=== PATIENT | female | born 1950 | race Asian ===

== ENCOUNTER 2021-07-11 03:15 | Inpatient (IN) | payer OTHER ==
[2021-07-11 03:36] VITALS: BMI 24.5
[2021-07-11] MEDS ORDERED: ACETAMINOPHEN 1000 MG/100 ML VIAL (NON FORMULARY) IVPB ONE (03:43)
[2021-07-11] MEDS ORDERED: SODIUM CHLORIDE 1,000 ML IV STA (03:43)
[2021-07-11] MEDS ORDERED: ONDANSETRON 4 MG/2 ML VIAL IVPUSH ONE (03:43)
[2021-07-11] MEDS ORDERED: ACETAMINOPHEN INJECTION 100 ML IVPB ONE (03:45)
[2021-07-11] MEDS ORDERED: ONDANSETRON 4 MG/2 ML VIAL ONE (03:46)
[2021-07-11 04:20] LABS: BASO % 0.5 % (0-2.0); HEMATOCRIT 42.5 % (32.4-45.2); HEMOGLOBIN 14.1 GM/dL (10.7-15.3); LYMPH % 10.3 % (8-40); MCH 26.3 pg (25.7-33.7); MCHC 33.1 g/dl (32.0-36.0); MEAN CELL VOLUME 79.4 fl (80-96); MEAN PLT VOLUME 8.8 fl (7.5-11.1); MONO % 4.4 % (3.8-10.2); NEUT % 82.8 % (42.8-82.8); PLATELET COUNT 269 10^3/uL (134-434); RBC 5.35 M/mm3 (3.60-5.2); RDW 15.4 % (11.6-15.6); WHITE BLOOD COUNT 14.6 K/mm3 (4.0-10.0)
[2021-07-11 04:28] LABS: INR 0.9 (0.83-1.09)
[2021-07-11 04:31] LABS: ACTIVATED PTT 24.6 SECONDS (25.2-36.5)
[2021-07-11 04:34] LABS: CHLORIDE 101 mmol/L (98-107); SODIUM 131 mmol/L (136-145)
[2021-07-11 04:36] LABS: CALCIUM 8.9 mg/dL (8.5-10.1)
[2021-07-11 04:37] LABS: ALBUMIN 3.4 g/dl (3.4-5.0); BLOOD UREA NITROGEN 20.6 mg/dL (7-18); CO2 22 mmol/L (21-32); GLUCOSE,RANDOM 210 mg/dL (74-106); LIPASE 99 U/L (73-393)
[2021-07-11 04:39] LABS: PH,URINE 7.5 (5.0-8.0); URINE APPEARANCE CLEAR; URINE BILIRUBIN NEGATIVE (NEGATIVE); URINE COLOR YELLOW; URINE GLUCOSE (UA) 3+ (NEGATIVE); URINE KETONE NEGATIVE (NEGATIVE); URINE LEUK ESTERASE NEGATIVE (NEGATIVE); URINE NITRITE NEGATIVE (NEGATIVE); URINE PROTEIN TRACE (NEGATIVE); URINE UROBILINOGEN 0.2 mg/dL (0.2-1.0)
[2021-07-11 04:40] LABS: SGOT/AST 79 U/L (15-37)
[2021-07-11 04:41] LABS: BILIRUBIN,TOTAL 0.3 mg/dL (0.2-1)
[2021-07-11 04:42] LABS: TOT PROT 8.4 g/dl (6.4-8.2)
[2021-07-11 04:43] LABS: ALK PHOS 89 U/L (45-117)
[2021-07-11 04:50] LABS: ANION GAP 7 MMOL/L (8-16); SGPT/ALT 26 U/L (13-61)
[2021-07-11] MEDS ORDERED: SODIUM CHLORIDE 1,000 ML IV SCH ×2 (07:15→07:47)
[2021-07-11] MEDS: LACTATED RINGERS SOLUTION 1,000 ML/1,000 ML INFUS.BAG IV SCH ×2 (08:11→21:59)
[2021-07-11] MEDS ORDERED: CEFAZOLIN 2 GM/D5W 2 GM/50 ML ML IVPB ONE (08:26)
[2021-07-11] MEDS: CEFAZOLIN 2 GM in DEXTROSE 5%-WATER - 50 ML IVPB SCH ×2 (08:35→13:16)
[2021-07-11 09:56] LABS: ERYTHROCYTE SEDIMENTATION RATE 10 mm/hr (0-30)
[2021-07-11] MEDS ORDERED: INSULIN SLIDING SCALE (NOVOLOG) 1 VIAL SQ SCH (11:00)
[2021-07-11] MEDS: PANTOPRAZOLE SODIUM 40 MG VIAL IVPUSH SCH (15:09)
[2021-07-11] MEDS: ACETAMINOPHEN 1000 MG/100 ML VIAL (NON FORMULARY) IVPB PRN (17:02)
[2021-07-11] MEDS: INSULIN SLIDING SCALE (NOVOLOG) 1 VIAL SQ SCH (21:57)
[2021-07-12 08:54] LABS: BASO % 0.1 % (0-2.0); EOS % 1.6 % (0-4.5); HEMATOCRIT 38.4 % (32.4-45.2); HEMOGLOBIN 12.5 GM/dL (10.7-15.3); LYMPH % 13.3 % (8-40); MCH 26.5 pg (25.7-33.7); MCHC 32.4 g/dl (32.0-36.0); MEAN CELL VOLUME 81.7 fl (80-96); MEAN PLT VOLUME 9.3 fl (7.5-11.1); MONO % 3.9 % (3.8-10.2); NEUT % 81.1 % (42.8-82.8); PLATELET COUNT 248 10^3/uL (134-434); RBC 4.71 M/mm3 (3.60-5.2); RDW 15.7 % (11.6-15.6); WHITE BLOOD COUNT 10.2 K/mm3 (4.0-10.0)
[2021-07-12] MEDS: CEFAZOLIN 2 GM in DEXTROSE 5%-WATER 100 ML IVPB SCH (10:38)
[2021-07-12] MEDS: LOSARTAN POTASSIUM 50 MG TABLET PO SCH ×2 (10:53→10:56)
[2021-07-12] MEDS: LACTATED RINGERS SOLUTION 1,000 ML/1,000 ML INFUS.BAG IV SCH ×2 (10:53→14:55)
[2021-07-12] MEDS: amLODIPine BESYLATE 5 MG TABLET (FP) PO SCH ×2 (10:53→10:56)
[2021-07-12] MEDS: PANTOPRAZOLE SODIUM 40 MG VIAL IVPUSH SCH (10:53)
[2021-07-12] MEDS: ACETAMINOPHEN 1000 MG/100 ML VIAL (NON FORMULARY) IVPB PRN (14:56)
[2021-07-12] MEDS: INSULIN SLIDING SCALE (NOVOLOG) 1 VIAL SQ SCH ×2 (15:01→18:04)
[2021-07-13] MEDS: LACTATED RINGERS SOLUTION 1,000 ML/1,000 ML INFUS.BAG IV SCH (02:23)
[2021-07-13 05:05] VITALS: BP 143/75; PULSE 101; TEMP 98.7
[2021-07-13] MEDS: INSULIN SLIDING SCALE (NOVOLOG) 1 VIAL SQ SCH ×3 (05:36→12:12)
[2021-07-13 08:16] LABS: BASO % 0.1 % (0-2.0); EOS % 2.6 % (0-4.5); HEMATOCRIT 36.8 % (32.4-45.2); HEMOGLOBIN 12.1 GM/dL (10.7-15.3); LYMPH % 14.1 % (8-40); MCH 26.7 pg (25.7-33.7); MCHC 32.8 g/dl (32.0-36.0); MEAN CELL VOLUME 81.5 fl (80-96); MEAN PLT VOLUME 9.2 fl (7.5-11.1); MONO % 4.2 % (3.8-10.2); PLATELET COUNT 234 10^3/uL (134-434); RBC 4.52 M/mm3 (3.60-5.2); RDW 15.4 % (11.6-15.6)
[2021-07-13 08:50] LABS: CALCIUM 8.6 mg/dL (8.5-10.1)
[2021-07-13 08:51] LABS: ALBUMIN 2.9 g/dl (3.4-5.0); BLOOD UREA NITROGEN 10.7 mg/dL (7-18); MAGNESIUM 1.9 mg/dL (1.8-2.4)
[2021-07-13 08:54] LABS: CREATININE 0.6 mg/dL (0.55-1.3)
[2021-07-13 08:55] LABS: BILIRUBIN,TOTAL 0.5 mg/dL (0.2-1)
[2021-07-13 08:59] LABS: TOT PROT 6.2 g/dl (6.4-8.2)
[2021-07-13] MEDS ORDERED: ceFAZolin SODIUM 1 GM VIAL ONE (10:17)
[2021-07-13] MEDS ORDERED: DEXTROSE 5%-WATER 100 ML IVPB ONE (10:17)
[2021-07-13] MEDS: LOSARTAN POTASSIUM 50 MG TABLET PO SCH (10:21)
[2021-07-13] MEDS: PANTOPRAZOLE SODIUM 40 MG VIAL IVPUSH SCH (10:21)
[2021-07-13] MEDS: amLODIPine BESYLATE 5 MG TABLET (FP) PO SCH (10:21)
[2021-07-13] MEDS: CEFAZOLIN 2 GM in DEXTROSE 5%-WATER 100 ML IVPB SCH (10:22)
[2021-07-13] MEDS ORDERED: CEFAZOLIN 2 GM in DEXTROSE 5%-WATER - 100 ML IVPB SCH (10:35)
[2021-07-13] MEDS ORDERED: metFORMIN HCL 500 MG TABLET (FP) PO SCH (22:00)
[2021-07-13] MEDS ORDERED: glipiZIDE-XL 10 MG TAB.ER.24 (FP) PO SCH (22:00)
[2021-07-14] MEDS ORDERED: HYDROCHLOROTHIAZIDE 12.5 MG CAPSULE (FP) PO SCH (10:00)
[2021-07-14] MEDS ORDERED: ASPIRIN 81 MG CHEWABLE TABLETS PO SCH (10:00)
[2021-07-14] MEDS ORDERED: PATIENT'S OWN MEDICATION (NON-FORMULARY) (Losartan/Hydrochlorothiazide [Losartan-Hctz 100- PO SCH (10:00)
[2021-07-14] MEDS ORDERED: PRIMIDONE 250 MG TABLET PO SCH (10:00)
== END 2021-07-13 15:50 | disposition home or self-care (01) | DRG 389 ==
LOC: JER 03:15 → JERBED 06:07 → J6S 10:45
PROVIDERS: ADMIT Internal Medicine; ATTEND Nurse Practitioner Acute Care
PROC: 0D9670Z Drainage of Stomach with Drainage Device, Via Natural or Artificial Opening (ICD-10-PCS; principal; 2021-07-11)
DX: K56.609 Unspecified intestinal obstruction, unspecified as to partial versus complete obstruction (principal); E87.1 Hypo-osmolality and hyponatremia; I10 Essential (primary) hypertension; R10.9 Unspecified abdominal pain; Z79.84 Long term (current) use of oral hypoglycemic drugs; E78.5 Hyperlipidemia, unspecified; E11.9 Type 2 diabetes mellitus without complications; E86.0 Dehydration; R74.01 Elevation of levels of liver transaminase levels; D72.829 Elevated white blood cell count, unspecified
CPT/HCPCS: 36415; 71045-TC-FY; 74019-TC-FY; 74177-TC; 80053; 81003; 82962; 83605; 83690; 83735; 84132; 84484; 85025; 85610; 85651; 85730; 86140; 86850; 86900; 86901; 93005; 93010; 99285-25; C9803; J0131; U0003; U0005